=== PATIENT | female | born 1950 | race Caucasian/White ===

== ENCOUNTER → 2016-07-14 | Outpatient (CLI) | payer OTHER ==
--- NOTE | 2016-07-14 09:06 | RAD ---
Right upper quadrant abdominal ultrasound, 07/14/2016: History: Right-sided pain. The gallbladder is within normal limits in size. There is no sonographic evidence of cholelithiasis. The gallbladder luna are not thickened. The common hepatic duct is normal. There is no evidence of a hepatic mass. There is a small echogenic focus with posterior acoustic shadowing in the lower pole of the right kidney compatible with an intrarenal calculus. It measures 5 mm. The right kidney is otherwise unremarkable without evidence of obstruction. The visualized portions of the pancreas are unremarkable. IMPRESSION: 1. No gallbladder abnormality is detected. 2. Small nonobstructing calculus in the right kidney.
== END | disposition home or self-care (01) ==
LOC: US 07:39
PROVIDERS: ATTEND General Practice
DX: N20.0 Calculus of kidney (principal); R30.9 Painful micturition, unspecified
CPT/HCPCS: 76705

== ENCOUNTER → 2016-08-14 | Outpatient (CLI) | payer OTHER ==
[~2016-08-14] MED LIST: CARV12.52 PO; CHLO25TA PO; DILT180C64 PO; IOHEXOL 300 MG/ML 75 ML VIAL. IV ONE; LISI40TA PO; MELO-150 PO; PANT40TA5 PO; SIMV20TA3 PO
[2016-08-14 09:21] LABS: GFR 55.1
--- NOTE | 2016-08-14 10:33 | RAD ---
CT abdomen pelvis without and with intravenous contrast (CT urogram) History: Hematuria and recurrent urinary tract infections. Comparison: Ultrasound abdomen 07/14/2016. Technique: Initially, noncontrast CT of the abdomen and pelvis was performed. After intravenous contrast administration, 75 mL Omnipaque 350, helical CT of the abdomen was performed in the nephrographic phase through the kidneys. Delayed excretory phase helical CT of the abdomen and pelvis was also performed. One or more of the following individualized dose reduction techniques were utilized for the study: Automated exposure control Adjustment of mA and/or kV according to patient's size Use of iterative reconstruction technique. Findings: Noncontrast images demonstrate a 3 mm nonobstructive nephrolith involving the interpolar region of the right kidney. Interpolar region of the left kidney demonstrates 2 punctate nonobstructive nephroliths. Both ureters are free of stone or obstruction. Postcontrast images demonstrate symmetric enhancement and excretion of intravenous contrast by the kidneys. Interpolar region of left kidney demonstrates subcentimeter low-attenuation lesion which is seen on the 2 postcontrast phases, too small to characterize. Left ureter opacifies in its entirety and is without evidence of obstruction or mass. The proximal and mid third of the right ureter opacify with excreted intravenous contrast. Distal right ureter does not opacify with excreted intravenous contrast, but there is no evidence of right ureteral mass. Urinary bladder is unremarkable. Left thyroid lobe demonstrates subcentimeter low-attenuation lesion, too small to characterize. Spleen, pancreas, gallbladder, and bilateral adrenal glands are unremarkable. Aortic atherosclerosis is seen. No bowel obstruction or inflammation is identified. No free air or free fluid is in the abdomen or pelvis. Uterus is absent. Bilateral ovaries are thought left place. Impression: 1. Nonobstructive bilateral nephrolithiasis. 2. No evidence of urinary mass.
== END | disposition home or self-care (01) ==
LOC: CT 07:57
PROVIDERS: ATTEND Urology
DX: N20.0 Calculus of kidney (principal); I70.0 Atherosclerosis of aorta; R31.9 Hematuria, unspecified; Z87.440 Personal history of urinary (tract) infections
CPT/HCPCS: 36415; 74178; 82565; Q9967

== ENCOUNTER → 2016-11-27 | Outpatient (CLI) | payer OTHER ==
[~2016-11-27] MED LIST changes: -IOHEXOL 300 MG/ML 75 ML VIAL. IV ONE; -MELO-150 PO; +MELO15TA23 PO
--- NOTE | 2016-11-27 11:04 | RAD ---
Ultrasound of the right inguinal region 11/27/2016 Clinical history: Possible right femoral hernia. Technique: A real-time ultrasound examination of the right inguinal region was performed. Multiple images were obtained. Findings: Comparison is made to patient's CT scan of the abdomen and pelvis dated 08/14/2016. No hernia is seen. Three reactive right inguinal lymph nodes are seen which measure 0.9, 1.8 and 3.8 cm in size. Impression: No hernia is seen.
== END | disposition home or self-care (01) ==
LOC: US 09:38
PROVIDERS: ATTEND Nurse Practitioner Family
DX: K41.90 Unilateral femoral hernia, without obstruction or gangrene, not specified as recurrent (principal)
CPT/HCPCS: 76881

== ENCOUNTER → 2016-12-12 | Outpatient (CLI) | payer OTHER ==
--- NOTE | 2016-12-12 13:20 | RAD ---
Exam performed: 2 views of the chest. Indication: CXR FOR PREOPERATION 12/19/16, HERNIA REPAIR Date of Service:12/12/2016 2:00 AM . Comparison : None available. Findings: PA and lateral radiographs of the chest reveal a normal cardiomediastinal contour. The lungs are clear. No pleural fluid is seen. The visualized osseous structures are unremarkable. Impression: Radiographically normal chest.
== END | disposition home or self-care (01) ==
LOC: DXRADRC 10:54
PROVIDERS: ATTEND Nurse Practitioner Family
DX: Z01.818 Encounter for other preprocedural examination (principal)
CPT/HCPCS: 71020

== ENCOUNTER → 2017-08-10 | Outpatient (CLI) | payer OTHER ==
[2017-08-10 10:44] LABS: BASO # 0.1 x10^3/uL (0.0-0.2); BASO % 1 % (0-3); EOS # 0.1 x10^3/uL (0.0-0.7); EOS % 2 % (0-3); HEMATOCRIT 38.4 % (36.0-47.0); HEMOGLOBIN 12.7 g/dL (12.0-15.5); LYMPH # 2.8 x10^3/uL (1.0-4.8); LYMPH % 40 % (24-48); MEAN CORPUSCULAR HEMOGLOBIN 30 pg (25-35); MEAN CORPUSCULAR HGB CONC 33 g/dL (31-37); MEAN CORPUSCULAR VOLUME 91 fL (79-100); MONO # 0.6 x10^3/uL (0.0-1.1); MONO % 9 % (0-9); NEUT # 3.4 x10^3uL (1.8-7.7); NEUT % 49 % (31-73); PLATELET COUNT 280 x10^3/uL (140-400); RED BLOOD COUNT 4.23 x10^6/uL (3.50-5.40); RED CELL DISTRIBUTION WIDTH 12.5 % (11.5-14.5)
[2017-08-10 10:53] LABS: ALBUMIN 3.9 g/dL (3.4-5.0); ALBUMIN/GLOBULIN RATIO 1.1 (1.0-1.7); C REACTIVE PROTEIN 6.1 mg/L (0-3.3); CALCIUM 9.5 mg/dL (8.5-10.1); CREATININE 0.9 mg/dL (0.6-1.0); GFR 62.1; POTASSIUM 4.4 mmol/L (3.5-5.1); TOTAL BILIRUBIN 0.4 mg/dL (0.2-1.0); TOTAL PROTEIN 7.6 g/dL (6.4-8.2)
[2017-08-10 11:50] LABS: SEDIMENTATION RATE 14 (0-25)
--- NOTE | 2017-08-10 15:19 | RAD ---
3 views bilateral feet AP lateral oblique History: Arthritis The visualized osseous structures appear normal. Impression: No acute findings 3 views bilateral hands AP lateral oblique There is loss of joint space of the distal interphalangeal joints with marginal spurring consistent with osteoarthrosis. There is no advanced bony degenerative changes. Impression: Degenerative changes consistent with early osteoarthrosis. No acute findings. End impression One view pelvis: History: Pain AP view the pelvis was obtained. The visualized osseous structures appear intact. There is obscuration of the bony detail of the sacrum due to overlying bowel gas. Impression: No acute findings.
[2017-08-10 19:10] LABS: RHEUMATOID FACTOR <10.0 IU/mL (0.0-13.9)
[2017-08-13 21:08] LABS: CYCLIC CITRULLIN PEP AB 14 units (0-19)
== END | disposition home or self-care (01) ==
LOC: RAD 09:57
PROVIDERS: ATTEND Internal Medicine Rheumatology
DX: M19.042 Primary osteoarthritis, left hand (principal); M19.041 Primary osteoarthritis, right hand; R79.89 Other specified abnormal findings of blood chemistry
CPT/HCPCS: 36415; 72170; 73130; 73630; 80053; 85025; 85651; 86140; 86200; 86431

== ENCOUNTER → 2018-01-18 | Outpatient (CLI) | payer OTHER ==
--- NOTE | 2018-01-21 08:39 | RAD ---
DATE: 01/18/2018 EXAM: MAMMO ERICK SCREENING BILATERAL HISTORY: Screening COMPARISON: 11/24/2015 screen mammographic exam This study was interpreted with the benefit of Computerized Aided Detection (CAD ). Breast Density: SCATTERED The breast parenchyma shows scattered fibroglandular densities. Breast parenchyma level B. FINDINGS: Parenchymal distribution is stable. Benign calcification is present. No dominant masses. Small masses bilaterally have remained stable and are multiple. No distortion. IMPRESSION: BI-RADS CATEGORY: 2 BENIGN FINDING(S) RECOMMENDED FOLLOW-UP: PQRS compliance statement: Patient information was entered into a reminder system with a target due date in 1 year for the next mammogram. Mammography is a sensitive method for finding small breast cancers, but it does not detect them all and is not a substitute for careful clinical examination. A negative mammogram does not negate a clinically suspicious finding and should not result in delay in biopsying a clinically suspicious abnormality. "Our facility is accredited by the [employer] Mammography Program." JIMI
== END | disposition home or self-care (01) ==
LOC: MAMMO 15:18
PROVIDERS: ATTEND Neuromusculoskeletal Medicine & OMM
DX: Z12.31 Encounter for screening mammogram for malignant neoplasm of breast (principal)
CPT/HCPCS: 77063; 77067

== ENCOUNTER 2018-02-23 11:05 | Inpatient (IN) | payer OTHER ==
[~2018-02-23] VITALS: Ht 162.6 cm; Wt 67.4 kg
[~2018-02-23 11:05] MED LIST changes: -CARV12.52 PO; +CARV12.547 PO; -CHLO25TA PO; +CHLO25TA9 PO
[2018-02-23] MEDS ORDERED: ONDANSETRON PF 4 MG/2 ML VIAL. IV ONE (11:30)
--- NOTE | 2018-02-23 11:40 | ED.ADGEN ---
Past History Past Medical History: Arthritis, High Cholesterol, Hypertension, Kidney Stones Past Surgical History: Hysterectomy, Other Alcohol Use: None Drug Use: None Adult General Chief Complaint Chief Complaint Right flank pain HPI HPI Patient is a 68-year-old female history of chronic low back pain presents with acute onset right lower back pain radiating to right lower abdomen starting approximately 4 hours prior to ED arrival. Patient was sitting down watching TV when pain began. Symptoms are associated with nausea. Pain is described as sharp moderate to severe and is worse with palpation and movement. No urinary frequency urgency or hematuria. No constipation or diarrhea. No other acute symptoms or complaints.[] Review of Systems Review of Systems Review symptoms as per history of present illness. All other review symptoms are negative. All other systems were reviewed and found to be within normal limits, except as documented in this note. Current Medications Current Medications Current Medications Medications (Trade) Dose Ordered Sig/Anali Start Time Stop Time Status Last Admin Dose Admin Fentanyl Citrate (Fentanyl 2ml Vial) 75 mcg 1X ONCE 02/23/18 11:30 02/23/18 11:32 DC 02/23/18 11:40 75 MCG Ketorolac Tromethamine (Toradol 30mg Vial) 30 mg 1X ONCE 02/23/18 13:30 02/23/18 13:31 UNV Morphine Sulfate (Morphine 10mg Syringe) 5 mg 1X ONCE 02/23/18 12:45 02/23/18 12:47 DC 02/23/18 12:54 5 MG Ondansetron HCl (Zofran) 4 mg 1X ONCE 02/23/18 11:30 02/23/18 11:32 DC 02/23/18 11:41 4 MG Sodium Chloride 1,000 ml @ 1,000 mls/hr 1X ONCE 02/23/18 13:30 02/23/18 14:29 UNV Allergies Allergies Allergies Coded Allergies Type Severity Reaction Last Updated Verified Penicillins Allergy Severe rash 03/26/13 Yes amlodipine Allergy Mild 02/23/18 Yes aspirin Allergy Unknown 01/02/14 Yes Physical Exam Physical Exam Constitutional: Well developed, well nourished, moderate distress secondary to pain[] HENT: Normocephalic, atraumatic, bilateral external ears normal, oropharynx moist, no oral exudates, nose normal. [] Eyes: PERRLA, EOMI, conjunctiva normal, no discharge. [] Neck: Normal range of motion, no tenderness, supple, no stridor. [] Cardiovascular:Heart rate regular rhythm, no murmur [] Lungs & Thorax: Bilateral breath sounds clear to auscultation [] Abdomen: Bowel sounds normal, soft, right lower quadrant pain no tenderness.. [ ] Skin: Warm, dry, no erythema, no rash. [] Back: No tenderness, no CVA tenderness. [] Extremities: No tenderness. [] Neurologic: Alert and oriented X 3, normal motor function, normal sensory function, no focal deficits noted. [] Psychologic: Affect normal, judgement normal, mood normal. [] Current Patient Data Vital Signs Vital Signs Date Time Temp Pulse Resp B/P (MAP) Pulse Ox O2 Delivery O2 Flow Rate FiO2 02/23/18 13:07 71 16 166/71 (102) 97 Room Air 02/23/18 11:15 97.7 Lab Results Laboratory Tests Test 02/23/18 11:15 02/23/18 11:24 Urine Collection Type Unknown Urine Color Yellow Urine Clarity Cloudy Urine pH 6.0 Urine Specific Lutz 1.020 Urine Protein Neg (NEG-TRACE) Urine Glucose (UA) Neg mg/dL (NEG) Urine Ketones (Stick) Neg mg/dL (NEG) Urine Blood Large (NEG) Urine Nitrite Neg (NEG) Urine Bilirubin Neg (NEG) Urine Urobilinogen Dipstick 0.2 mg/dL (0.2 mg/dL) Urine Leukocyte Esterase Neg (NEG) Urine RBC >40 /HPF (0-2) Urine WBC 1-4 /HPF (0-4) Urine Squamous Epithelial Cells Mod /LPF Urine Bacteria Mod /HPF (0-FEW) White Blood Count 7.1 x10^3/uL (4.0-11.0) Red Blood Count 4.30 x10^6/uL (3.50-5.40) Hemoglobin 13.3 g/dL (12.0-15.5) Hematocrit 39.5 % (36.0-47.0) Mean Corpuscular Volume 92 fL (79-100) Mean Corpuscular Hemoglobin 31 pg (25-35) Mean Corpuscular Hemoglobin Concent 34 g/dL (31-37) Red Cell Distribution Width 13.0 % (11.5-14.5) Platelet Count 321 x10^3/uL (140-400) Neutrophils (%) (Auto) 55 % (31-73) Lymphocytes (%) (Auto) 34 % (24-48) Monocytes (%) (Auto) 9 % (0-9) Eosinophils (%) (Auto) 2 % (0-3) Basophils (%) (Auto) 1 % (0-3) Neutrophils # (Auto) 3.9 x10^3uL (1.8-7.7) Lymphocytes # (Auto) 2.4 x10^3/uL (1.0-4.8) Monocytes # (Auto) 0.6 x10^3/uL (0.0-1.1) Eosinophils # (Auto) 0.1 x10^3/uL (0.0-0.7) Basophils # (Auto) 0.1 x10^3/uL (0.0-0.2) Sodium Level 138 mmol/L (136-145) Potassium Level 4.2 mmol/L (3.5-5.1) Chloride Level 101 mmol/L (98-107) Carbon Dioxide Level 26 mmol/L (21-32) Anion Gap 11 (6-14) Blood Urea Nitrogen 18 mg/dL (7-20) Creatinine 1.2 mg/dL (0.6-1.0) H Estimated GFR (Cockcroft-Gault) 44.4 BUN/Creatinine Ratio 15 (6-20) Glucose Level 141 mg/dL (70-99) H Calcium Level 9.1 mg/dL (8.5-10.1) Total Bilirubin 0.5 mg/dL (0.2-1.0) Aspartate Amino Transferase (AST) 21 U/L (15-37) Alanine Aminotransferase (ALT) 44 U/L (14-59) Alkaline Phosphatase 81 U/L (46-116) Total Protein 7.7 g/dL (6.4-8.2) Albumin 3.9 g/dL (3.4-5.0) Albumin/Globulin Ratio 1.0 (1.0-1.7) EKG EKG [] Radiology/Procedures Radiology/Procedures [CT abdomen pelvis: 4.5 mm distal right ureteral stone with moderate hydronephrosis.] Course & Med Decision Making Course & Med Decision Making Pertinent Labs and Imaging studies reviewed. (See chart for details) [Patient require repeat pain medication emergency department. She is currently a poor candidate to go home. Will admit to the hospitalist service for further management of symptoms.] Final Impression Final Impression [#1 right flank pain #2 right ureteral stone] Hugo Disclaimer Hugo Disclaimer This electronic medical record was generated, in whole or in part, using a voice recognition dictation system. CHRISTINE CID DO Feb 23, 2018 11:40
[2018-02-23 11:41] LABS: BASO # 0.1 x10^3/uL (0.0-0.2); BASO % 1 % (0-3); EOS # 0.1 x10^3/uL (0.0-0.7); EOS % 2 % (0-3); HEMATOCRIT 39.5 % (36.0-47.0); HEMOGLOBIN 13.3 g/dL (12.0-15.5); LYMPH # 2.4 x10^3/uL (1.0-4.8); LYMPH % 34 % (24-48); MEAN CORPUSCULAR HEMOGLOBIN 31 pg (25-35); MEAN CORPUSCULAR HGB CONC 34 g/dL (31-37); MEAN CORPUSCULAR VOLUME 92 fL (79-100); MONO # 0.6 x10^3/uL (0.0-1.1); MONO % 9 % (0-9); NEUT # 3.9 x10^3uL (1.8-7.7); NEUT % 55 % (31-73); PLATELET COUNT 321 x10^3/uL (140-400); WHITE BLOOD COUNT 7.1 x10^3/uL (4.0-11.0)
[2018-02-23 11:45] LABS: BILIRUBIN,URINE NEG (NEG); CLARITY,URINE CLOUDY; COLOR,URINE YELLOW; GLUCOSE,URINE NEG (NEG)
[2018-02-23 11:46] LABS: BACTERIA,URINE MOD /HPF (0-FEW); NITRITE,URINE NEG (NEG); RBC,URINE >40 /HPF (0-2); SQUAMOUS EPITHELIAL CELL,UR MOD /LPF; UROBILINOGEN,URINE 0.2 mg/dL (0.2 mg/dL)
[2018-02-23 11:55] LABS: ALBUMIN 3.9 g/dL (3.4-5.0); CALCIUM 9.1 mg/dL (8.5-10.1); CREATININE 1.2 mg/dL (0.6-1.0); GFR 44.4; POTASSIUM 4.2 mmol/L (3.5-5.1); TOTAL BILIRUBIN 0.5 mg/dL (0.2-1.0); TOTAL PROTEIN 7.7 g/dL (6.4-8.2)
--- NOTE | 2018-02-23 12:37 | RAD ---
Examination: CT of the abdomen pelvis without contrast HISTORY: History of right flank pain COMPARISON: 08/14/2016 TECHNIQUE: Axial CT images of the abdomen pelvis were performed without contrast. Coronal and sagittal reformats are performed. Exposure: One or more of the following individualized dose reduction techniques were utilized for this examination: 1. Automated exposure control 2. Adjustment of the mA and/or kV according to patient size 3. Use of iterative reconstruction technique FINDINGS: Minimal bibasilar lung atelectasis. No evidence of free air identified in the abdomen. The evaluation of the solid organs is limited due to lack of IV contrast. The evaluation of the bowel is limited due to lack of oral contrast. The visualized noncontrasted liver, spleen, adrenals grossly appears unremarkable. The gallbladder is mildly distended. The stomach is mildly distended. The visualized pancreas grossly appears unremarkable. The small bowel is nondilated. Feces and gas noted in the colon. Urinary bladder is mildly distended. Mild to moderate right-sided hydronephrosis and hydroureter identified. There is a 4.5 mm calculus identified in the distal right ureter. Punctate 1 mm intrarenal collecting system calculus left kidney. Mild aortic atherosclerosis. Mild degenerative changes lumbar spine. There is 2 mm retrolisthesis of L2 on L3. IMPRESSION: 1. 4.5 mm calculus identified in the distal right ureter causing mild to moderate right-sided hydronephrosis and hydroureter. Minimal fat stranding identified about the right kidney. 2. Punctate left intrarenal collecting system calculus. Electronically signed by: Ry Jacinto MD (02/23/2018 12:34 PM) [facility]
[2018-02-23] MEDS ORDERED: MORPHINE SULFATE 10 MG/ML SYRINGE. IV ONE (12:45)
[2018-02-23] MEDS ORDERED: KETOROLAC 30 MG/ML VIAL. IV ONE (13:30)
[2018-02-23] MEDS ORDERED: IV NORMAL SALINE 1,000ML 1,000 ML IV ONE (13:30)
[2018-02-23] MEDS ORDERED: TAMSULOSIN 0.4 MG CAP.ER.24H. PO ONE (13:45)
[2018-02-23] MEDS ORDERED: MORPHINE SULFATE 2 MG/ML DISP.SYRIN. IV PRN (13:45)
[2018-02-23 15:00] VITALS: BP 175/69
[2018-02-23] MEDS: IV NORMAL SALINE 1,000ML 1,000 ML IV SCH (15:23)
--- NOTE | 2018-02-23 16:01 | HP ---
ADMIT DATE: 02/23/2018 HISTORY OF PRESENT ILLNESS: The patient is a 68-year-old female patient with a history of chronic low back pain, who presented with acute onset of right lower back pain radiating to the right lower abdomen started approximately 4 hours prior to arrival to the Emergency Room. She was sitting down, watching TV when the pain began, symptoms are associated with some nausea. Pain is described as sharp, moderate to severe. It is worse with palpation and movement. She denied any frequency or hematuria. Denied any constipation or diarrhea. Denied any chills, rigors, or fever. She was extensively investigated in the Emergency Room and has had a CT scan of the abdomen and pelvis without contrast, which showed that she has a 4.5 mm distal right ureteral stone with moderate hydronephrosis. The patient was admitted to control the pain. Continue with the IV fluid, IV pain medication, antiemetics to strain all the urine and will repeat tomorrow CT scan without contrast if necessary unless she pass the stone. When I saw her by the time she arrived to the hospital, her pain has completely subsided. She received Toradol, morphine and fentanyl. PAST MEDICAL HISTORY: Significant for hypertension. Apparently, she has had previous history of nephrolithiasis, osteoarthritis, hyperlipidemia, bronchitis, and chronic back pain. PAST SURGICAL HISTORY: Significant for right inguinal hernia repair, exploratory laparotomy, total abdominal hysterectomy and bilateral oophorectomy, appendectomy. She has had also colonoscopy. ALLERGIES: She is allergic to PENICILLIN, AMLODIPINE, ASPIRIN. MEDICATIONS: She is currently on following medications: She is on simvastatin 20 mg at bedtime, carvedilol 12.5 mg twice a day, Cardizem for Cartia XT 180 mg once a day, lisinopril 40 mg once a day, meloxicam 15 mg daily, chlorthalidone 25 mg once a day, and Protonix 40 mg once a day. FAMILY HISTORY: She has 5 sisters. The oldest sister has underwent coronary artery bypass graft surgery. The rest are healthy. Her brother at the age of 70 because of bladder cancer. Father at age of 61 because of lung cancer and mother at the age of 61 because of lung cancer. SOCIAL HISTORY: She is , has 2 sons. She never smoked. Drinks alcohol very occasionally. She has retired from [employer]. REVIEW OF SYSTEMS: She has immature cataracts, but denied any glaucoma or macular degeneration. Denied any earache, tinnitus or sensorineural deafness. Denied any nosebleeds, stuffy nose or postnasal drip. Denied any sore throat, sore tongue, toothache, hoarseness of voice or difficulty swallowing. Did complain of nausea, but no vomiting. Denied any diarrhea or constipation. Denied any hematemesis, melena or hematochezia. Denied any dysuria, frequency or hematuria. She denied any chest pain, shortness of breath, orthopnea, paroxysmal nocturnal dyspnea. Denied any cough, phlegm or hemoptysis. Denied any dizziness, lightheadedness, or vertigo. PHYSICAL EXAMINATION: GENERAL: On arrival to the Emergency Room, she looked well and was clearly in no apparent respiratory distress. She was well-developed, well-nourished 68-year-old female patient in moderate distress secondary to pain. VITAL SIGNS: Her heart rate was 81, blood pressure was 171/81, temperature was 97.7, respiratory rate was 16, and oxygen saturation was 97% on room air. HEAD, EYES, EARS, NOSE AND THROAT: Showed normocephalic, atraumatic. NECK: Supple. HEART: Showed normal first and second heart sounds. No gallop, rub or murmur. CHEST: Clear to auscultation. No crepitation or rhonchi. ABDOMEN: Distended, soft, nontender. No guarding or rigidity. No organomegaly. All hernial orifice intact. Bowel sounds normal. She has tenderness in the right flank area. NEUROLOGIC: She was awake, alert, responding appropriately. All cranial nerves intact. EXTREMITIES: She moves extremities without difficulty. She ambulates without assistance or assistive devices. LABORATORY DATA: On admission showed a white cell count of 7100, hemoglobin 13.3, hematocrit 39.5, MCV 92, and platelet count of 321,000 with normal manual differential. Her chemistry showed a serum sodium 138, potassium 4.2, chloride 101, bicarbonate 26, anion gap of 11, BUN 18, creatinine 1.2, estimated GFR was 44 mL per minute. Her glucose 141, calcium was 9.1. Total bilirubin, AST, ALT, alkaline phosphatase were normal. Her urinalysis showed the urine was yellow, cloudy with a pH of 6, specific gravity of 1.020. The urine was negative for protein, glucose, ketones with large amount of blood, negative for nitrite and leukocyte esterase. There were more than 40 rbc's, 1-4 wbc's, moderate amount of bacteria. PLAN: To continue with IV fluid, IV pain medication, Flomax and will strain all her urine. RAJAN REMY MD DR: ERIN/aide JOB#: [id number] / [id number]
[2018-02-23] MEDS: CARVEDILOL 12.5 MG TABLET PO SCH (16:40)
[2018-02-23] MEDS: MORPHINE SULFATE 4 MG/ML DISP.SYRIN. IV PRN (18:34)
[2018-02-23] MEDS: KETOROLAC 15 MG/ML VIAL. IV PRN (19:33)
[2018-02-23 19:40] VITALS: BP 112/69
[2018-02-23] MEDS ORDERED: ATORVASTATIN CALCIUM 10 MG TABLET. PO SCH (21:00)
[2018-02-23] MEDS ORDERED: TAMSULOSIN 0.4 MG CAP.ER.24H. PO SCH (21:00)
[2018-02-23 23:13] VITALS: BP 101/61
[2018-02-23] MEDS: ONDANSETRON PF 4 MG/2 ML VIAL. IV PRN (23:21)
[2018-02-24] MEDS: MORPHINE SULFATE 4 MG/ML DISP.SYRIN. IV PRN (00:28)
[2018-02-24] MEDS: IV NORMAL SALINE 1,000ML 1,000 ML IV SCH ×2 (00:28→05:45)
[2018-02-24 01:42] VITALS: BP 109/66
[2018-02-24] MEDS: KETOROLAC 15 MG/ML VIAL. IV PRN ×2 (01:43→08:17)
[2018-02-24 06:14] VITALS: BP 119/68
[2018-02-24 06:59] LABS: BASO % 0 % (0-3); EOS % 0 % (0-3); HEMATOCRIT 34.4 % (36.0-47.0); HEMOGLOBIN 11.5 g/dL (12.0-15.5); LYMPH # 0.7 x10^3/uL (1.0-4.8); LYMPH % 4 % (24-48); MEAN CORPUSCULAR HEMOGLOBIN 31 pg (25-35); MEAN CORPUSCULAR HGB CONC 33 g/dL (31-37); MEAN CORPUSCULAR VOLUME 93 fL (79-100); MONO # 1.1 x10^3/uL (0.0-1.1); MONO % 6 % (0-9); NEUT # 15.8 x10^3uL (1.8-7.7); NEUT % 90 % (31-73); PLATELET COUNT 258 x10^3/uL (140-400); RED CELL DISTRIBUTION WIDTH 12.8 % (11.5-14.5); WHITE BLOOD COUNT 17.7 x10^3/uL (4.0-11.0)
[2018-02-24 07:16] LABS: ALBUMIN/GLOBULIN RATIO 0.9 (1.0-1.7); CALCIUM 8.2 mg/dL (8.5-10.1); CREATININE 1.6 mg/dL (0.6-1.0); GFR 31.9; POTASSIUM 4.4 mmol/L (3.5-5.1); TOTAL BILIRUBIN 0.6 mg/dL (0.2-1.0); TOTAL PROTEIN 6.2 g/dL (6.4-8.2)
[2018-02-24] MEDS ORDERED: PANTOPRAZOLE 40 MG TABLET. PO SCH (07:30)
[2018-02-24 07:37] LABS: % BANDS 2 % (0-9); % LYMPHS 3 % (24-48); % MONOS 3 % (0-10); % SEGS 92 % (35-66)
[2018-02-24 07:38] LABS: PLT ESTIMATE ADEQUATE (ADEQUATE); TOXIC GRANULATION PRESENT
[2018-02-24] MEDS: CHLORTHALIDONE 25 MG TABLET PO SCH ×2 (08:17→09:00)
[2018-02-24] MEDS: CARVEDILOL 12.5 MG TABLET PO SCH (08:17)
[2018-02-24 08:18] VITALS: BP 119/68
[2018-02-24] MEDS: ONDANSETRON PF 4 MG/2 ML VIAL. IV PRN (08:19)
[2018-02-24] MEDS ORDERED: MELOXICAM 15 MG TABLET. PO SCH (09:00)
[2018-02-24] MEDS ORDERED: LISINOPRIL 20 MG TABLET PO SCH (09:00)
--- NOTE | 2018-02-24 10:32 | RAD ---
CT abdomen and pelvis without contrast. HISTORY: Right flank pain, history of stones CT scan the abdomen and pelvis was done without contrast. There is mild atelectasis in the lung bases. A liver lesion is not identified. There is no calcified gallstone. Spleen and adrenal glands are normal. Pancreas is normal. There is no mass or hydronephrosis or calculus in the left kidney. There is right hydronephrosis. There is no intrarenal calculus in the right kidney. Right ureter is dilated. There is a 4 mm calculus at the right ureterovesical junction. Bladder is normal. There is moderate fluid in the colon. Patient's had a hysterectomy. Ovaries are normal. IMPRESSION: 1. 4 mm calculus at the right ureterovesical junction with right hydronephrosis. PQRS Compliance Statement: One or more of the following individualized dose reduction techniques were utilized for this examination: 1. Automated exposure control 2. Adjustment of the mA and/or kV according to patient size 3. Use of iterative reconstruction technique Electronically signed by: Kirby Woodall MD (02/24/2018 10:29 AM) [facility]
--- NOTE | 2018-02-24 12:20 | DS ---
DATE OF DISCHARGE: 02/24/2018 HOSPITAL COURSE: The patient is a 68-year-old female patient, who was admitted through the Emergency Room with a complaint of right loin pain radiating down to the right groin, started 4 hours before she arrived to the Emergency Room. She was investigated in the Emergency Room and had a CT scan of the abdomen without contrast, which showed that she has a 4.5 mm distal right ureteral stone with moderate hydronephrosis. She was admitted to control pain and I started on IV fluid, IV pain medication, antiemetic and hoping that the patient will pass stone spontaneously. Unfortunately, the patient continued to have pain, headache and diarrhea this morning. Also, her lab works showed dramatic rise in her white cell count to 17,700 and her kidney function has worsened and creatinine has risen from 1.2-1.6. We did repeat CT scan of the abdomen without contrast, which showed that she continued to have a 4 mm calculus at the right ureterovesical junction with right hydronephrosis and therefore decision was made to transfer her to [facility] to continue with IV antibiotic, IV fluid and pain management and to consult the Urology team. PHYSICAL EXAMINATION: GENERAL: When I saw her this morning, she was sitting, slightly propped up in bed, continued to complain of headache and diarrhea. Her pain was somewhat better controlled this morning. She was slightly pale, but no jaundice, cyanosis, or thyromegaly. No jugular venous distension. No lower limb edema. VITAL SIGNS: Her heart rate was 92, blood pressure was 119/68, temperature was 98.6, respiratory rate was 18 and oxygen saturation was 93%. HEAD, EYES, EARS, NOSE AND THROAT: Showed normocephalic, atraumatic. NECK: Supple. HEART: Showed normal first and second heart sounds. No gallop, rub, or murmur. CHEST: Clear to auscultation. No crepitation or rhonchi. ABDOMEN: Distended, soft, nontender. No guarding or rigidity. No organomegaly. All hernial orifice intact. Bowel sounds normal. NEUROLOGIC: She was awake, alert, responding appropriately. All cranial nerves intact. She moves extremities without difficulty. She ambulates without assistance or assistive devices. Her intake over the last 24 hours was 1675, output was 750. LABORATORY DATA: As of this morning, her white cell count went up to 17,700, hemoglobin 11.5, hematocrit 34.4, MCV 93, and platelet count of 258,000. Her serum sodium was 137, potassium 4.4, chloride 104, bicarbonate 25, anion gap of 8, BUN 19, creatinine 1.6, estimated GFR was 32 mL per minute. Her glucose 148. Lactic acid is 1.8. Calcium was 8.2. Total bilirubin, AST, ALT, alkaline phosphatase normal. Total protein 6.2, albumin 3. Urinalysis showed the urine was yellow, cloudy with a pH of 6, specific gravity 1.020. The urine was negative for protein, ketones, glucose. The urine was negative for nitrite, leukocyte esterase. There was more than 40 rbc's, very few wbc's and moderate amount of bacteria. Her repeat CT scan of the abdomen and pelvis this morning showed that there is mild atelectasis in the lung bases. The liver lesion is not identified. There are no calcified gallstones. Spleen and adrenal glands are normal. Pancreas is normal. There is no mass or hydronephrosis or calculus in the left kidney. There is a right hydronephrosis. There is no intrarenal calculus in the right kidney. Right ureter is dilated. There is a 4 mm calculus at the right ureterovesical junction. Bladder is normal. There is moderate fluid in the colon. The patient had a hysterectomy. Ovaries are normal. The patient was transferred to [facility] to continue on her diltiazem 180 mg once a day. I held her lisinopril and as well as her chlorthalidone and Meloxicam and ketorolac as her kidney function has dramatically worsened. Will continue obviously with Protonix. I switched her levofloxacin to meropenem 500 mg 3 times a day. We will continue atorvastatin, tamsulosin, carvedilol, morphine, and ondansetron. FINAL DISCHARGE DIAGNOSES: 1. A 4 mm obstructing stone to the right ureter with hydronephrosis. 2. Questionable right side pyelonephritis. 3. Hypertension. 4. Hyperlipidemia. 5. Chronic back pain. 6. History of nephrolithiasis. RAJAN REMY MD DR: ERIN/aide JOB#: [id number] / [id number]
== END 2018-02-24 11:15 | disposition short-term general hospital (02) | DRG 872 ==
LOC: ER 11:05 → 1 SOUTH 14:29
PROVIDERS: ADMIT Internal Medicine; ATTEND Internal Medicine
DX: A41.9 Sepsis, unspecified organism (principal); N13.2 Hydronephrosis with renal and ureteral calculous obstruction; N17.9 Acute kidney failure, unspecified; E78.00 Pure hypercholesterolemia, unspecified; E78.5 Hyperlipidemia, unspecified; I10 Essential (primary) hypertension; G89.29 Other chronic pain; M19.90 Unspecified osteoarthritis, unspecified site; Z80.52 Family history of malignant neoplasm of bladder; Z87.442 Personal history of urinary calculi; Z80.1 Family history of malignant neoplasm of trachea, bronchus and lung; Z90.710 Acquired absence of both cervix and uterus; Z88.6 Allergy status to analgesic agent; Z88.0 Allergy status to penicillin; Z88.8 Allergy status to other drugs, medicaments and biological substances; Z79.899 Other long term (current) drug therapy; Z90.722 Acquired absence of ovaries, bilateral; Z90.49 Acquired absence of other specified parts of digestive tract; N18.9 Chronic kidney disease, unspecified
CPT/HCPCS: 36415; 74176; 80053; 81001; 83605; 85007; 85025; 87086; 96361; 96374; 96375; J1885; J1956; J2270; J2405; J3010; 99285-25; J7030

== ENCOUNTER → 2018-07-12 | Outpatient (CLI) | payer OTHER ==
--- NOTE | 2018-07-12 16:00 | RAD ---
MR#: [id number] Date of Study: 07/12/2018 Ordering Physician: SARAH LUDWIG, Referring Physician: SARAH LUDWIG, Tech: Savita Calle RDMS, RVT, RTR APPROVED REPORT Patient Location: OUT-PATIENT Laterality:Bilateral Indications Grayscale images of the bilateral carotid arteries and carotid bulbs demonstrates mild soft intimal h yperplasia and plaque without any focal obstruction noted on gracia scale images. Spectral waveforms and color Doppler images do not reveal any significant focal obstruction. Overall 0 to less than 50% stenosis by velocity criteria. Normal ICA to CCA ratios are noted. Antegrade verte bral velocities are noted. Critical Notification Critical Value: No <Conclusion> No significant carotid occlusive disease bilaterally. Signed by : Sarah Ludwig, Electronically Approved : 07/12/2018 15:59:34
== END | disposition home or self-care (01) ==
LOC: US 10:40
PROVIDERS: ATTEND Internal Medicine Cardiovascular Disease
DX: R09.89 Other specified symptoms and signs involving the circulatory and respiratory systems (principal)
CPT/HCPCS: 93880

== ENCOUNTER → 2019-06-03 | Outpatient (CLI) | payer MEDICARE ==
[~2019-06-03] MED LIST changes: +SIMV20TA18 PO; -SIMV20TA3 PO
--- NOTE | 2019-06-04 13:21 | CARD ---
MR#: [id number] Date of Study: 06/03/2019 Ordering Physician: SARAH LUDWIG, Referring Physician: SARAH LUDWIG, Tech: Sabrina Lewis SRIDEVI APPROVED REPORT EXAM: Two-dimensional and M-mode echocardiogram with Doppler and color Doppler. Other Information Quality : GoodHR: 82bpm Rhythm : NSR INDICATION CAD 2D DIMENSIONS RVDd2.8 (2.9-3.5cm)Left Atrium(2D)3.6 (1.6-4.0cm) IVSd1.1 (0.7-1.1cm)Aortic Root(2D)2.4 (2.0-3.7cm) LVDd4.0 (3.9-5.9cm)LVOT Diameter1.9 (1.8-2.4cm) PWd1.1 (0.7-1.1cm)LVDs2.5 (2.5-4.0cm) FS (%) 39.1 %SV49.9 ml LVEF(%)70.1 (>50%) M-Mode DIMENSIONS Left Atrium(MM)3.58 (2.5-4.0cm)Aortic Root2.46 (2.2-3.7cm) Aortic Valve AoV Peak John.142.5cm/sAoV VTI31.7cm AO Peak GR.8.1mmHgLVOT Peak John.106.2cm/s LVOT VTI 21.45cmAO Mean GR.5mmHg ILEANA (VMAX)2.24mk1NQO (VTI)1.85cm2 Mitral Valve MV E Idhxwsyu346.7cm/sMV DECEL GUMU744rc MV A Iowdogsv312.7cm/sE/A Ratio1.0 Pulmonary Valve PV Peak Czgtfqzx699.1cm/sPV Peak Grad.9mmHg Tricuspid Valve TR P. Alluelfd801ln/sRAP CJBPBUJR4lyMx TR Peak Gr.42bbKbGLYP58puXa Pulmonary Vein S1 Bcqxcfxd21.7cm/sD2 Zfoilbic26.1cm/s LEFT VENTRICLE The left ventricle is normal size. There is mild concentric left ventricular hypertrophy. The left ve ntricular systolic function is normal and the ejection fraction is within normal range. The Ejection Fraction is 60-65%. There is normal LV segmental wall motion. Transmitral Doppler flow pattern is Gra de I-abnormal relaxation pattern. RIGHT VENTRICLE The right ventricle is normal size. There is normal right ventricular wall thickness. The right ventr icular systolic function is normal. ATRIA The left atrium size is normal. The right atrium size is normal. The interatrial septum is intact wit h no evidence for an atrial septal defect or patent foramen ovale as noted on 2-D or Doppler imaging. AORTIC VALVE The aortic valve is thickened but opens well. The aortic valve is trileaflet. Doppler and Color Flow revealed no significant aortic regurgitation. There is no significant aortic valvular stenosis. MITRAL VALVE The mitral valve is normal in structure and function. There is no evidence of mitral valve prolapse. There is no mitral valve stenosis. Doppler and Color Flow revealed no mitral valve regurgitation note d. TRICUSPID VALVE The tricuspid valve is normal in structure and function. Doppler and Color Flow revealed mild to mode rate tricuspid regurgitation. There is mild pulmonary hypertension. The PA pressure was estimated at 38 mmHg. There is no tricuspid valve prolapse or vegetation. There is no tricuspid valve stenosis. PULMONIC VALVE Doppler and Color Flow revealed no pulmonic valvular regurgitation. There is no pulmonic valvular reji nosis. GREAT VESSELS The aortic root is normal in size. The ascending aorta is normal in size. The IVC is normal in size a nd collapses >50% with inspiration. PERICARDIAL EFFUSION There is no evidence of significant pericardial effusion. Critical Notification Critical Value: No <Conclusion> The left ventricular systolic function is normal and the ejection fraction is within normal range. Th e Ejection Fraction is 60-65%. There is normal LV segmental wall motion. Doppler and Color Flow revealed mild to moderate tricuspid regurgitation. There is mild pulmonary hyp ertension. The PA pressure was estimated at 38 mmHg. Signed by : Sarah Ludwig, Electronically Approved : 06/03/2019 11:01:21
== END | disposition home or self-care (01) ==
LOC: ECHO 09:50
PROVIDERS: ATTEND Internal Medicine Cardiovascular Disease
DX: I36.1 Nonrheumatic tricuspid (valve) insufficiency (principal); I27.20 Pulmonary hypertension, unspecified; I51.7 Cardiomegaly; I25.10 Atherosclerotic heart disease of native coronary artery without angina pectoris
CPT/HCPCS: 93306

== ENCOUNTER → 2020-01-26 | Outpatient (CLI) | payer MEDICARE ==
[~2020-01-26] MED LIST changes: -PANT40TA5 PO; +PANT40TA6 PO
--- NOTE | 2020-01-26 10:52 | RAD ---
EXAM: LUMBAR SPINE MIN 4V 01/26/2020 12:00 AM CLINICAL INDICATION:Low back pain COMPARISON:CT abdomen and pelvis 02/24/2018 TECHNIQUE:5 views of the lumbar spine FINDINGS:There are 5 nonrib-bearing lumbar vertebral bodies. There is 5 mm retrolisthesis of L2 on L3. No acute fracture. There is moderate to severe disc space narrowing with endplate sclerosis and small osteophytes at L2-L3. Moderate disc space narrowing at L1-L2. Mild disc space narrowing at L3-L4 through L5-S1. There is mild facet arthrosis at L4-L5 and L5-S1. IMPRESSION: Moderate to severe degenerative disc disease and grade 1 listhesis at L2-L3, increased from 2018. Mild degenerative disc disease at the remaining levels. Electronically signed by: Kathy Villafana MD (01/26/2020 10:49 AM) [id number]
== END | disposition home or self-care (01) ==
LOC: PMG 09:25
PROVIDERS: ATTEND Physician Assistant Medical
DX: M47.817 Spondylosis without myelopathy or radiculopathy, lumbosacral region (principal); M51.36 Other intervertebral disc degeneration, lumbar region; M48.061 Spinal stenosis, lumbar region without neurogenic claudication; M43.16 Spondylolisthesis, lumbar region; M25.78 Osteophyte, vertebrae
CPT/HCPCS: 72110